=== PATIENT | female | born 1975 | race Two or more races ===

== ENCOUNTER 2021-06-18 12:46 | Emergency (ER) | payer MEDICAID, OTHER ==
[~2021-06-18] VITALS: Ht 170.2 cm; Wt 108.9 kg
[2021-06-18 13:35] LABS: Basophils # (auto) 0 10 ^3/uL (0-0.2); Basophils % (auto) 0.4 % (0.0-2.0); Eosinophils # (auto) 0.1 10 ^3/uL (0-0.8); Eosinophils % (auto) 2.3 % (0.0-7.0); Hematocrit 39.3 % (36.0-46.0); Hemoglobin 13.5 g/dL (12.2-16.2); Lymphocytes # (auto) 1.8 10 ^3/uL (0.4-5.4); Lymphocytes % (auto) 29.6 % (10.0-50.0); Mean Corpuscular Hgb Conc. 34.5 g/dL (32.0-36.0); Mean Corpuscular Volume 89.9 fL (80.0-100.0); Monocytes # (auto) 0.7 10 ^3/uL (0-1.3); Monocytes % (auto) 10.9 % (0.0-12.0); Neutrophils # (auto) 3.5 10 ^3/uL (1.6-8.6); Neutrophils % (auto) 56.8 % (37.0-80.0); Nucleated Red Blood Cells % 0.1 %; Red Blood Cells 4.37 10^6/uL (4.0-5.20); White Blood Cell 6.2 10^3/uL (4.4-10.8)
[2021-06-18 13:55] LABS: Albumin 3.3 g/dL (3.4-5.0); Anion Gap 7 (5-15); Blood Urea Nitrogen 11 mg/dL (7-18); Carbon Dioxide 23 mmol/L (21-32); Chloride 113 mmol/L (98-107); Glucose 114 mg/dL (74-106); Magnesium 2.6 mg/dL (1.6-2.6); Potassium 3.9 mmol/L (3.5-5.1); Sodium 143 mmol/L (136-145)
[2021-06-18 14:02] LABS: Alanine Aminotransferase 26 U/L (13-56); Alkaline Phosphatase 62 U/L (45-117); Aspartate Aminotransferase 14 U/L (15-37); BUN/Creatinine Ratio 18.3; Bilirubin, Total 0.2 mg/dL (0.2-1.0); GFR African American 138 mL/min; GFR Non-African American 114 mL/min; Total Protein 6.7 g/dL (6.4-8.2)
[2021-06-18 19:00] VITALS: BP 122/71
== END 2021-06-18 19:00 | disposition home or self-care (01) ==
LOC: ER 12:46
DX: R42 Dizziness and giddiness (principal)
CPT/HCPCS: 36415; 70450; 71046; 80053; 83735; 84484; 85025; 93005